=== PATIENT | female | born 1960 | race Caucasian/White ===

== ENCOUNTER 2018-05-18 00:24 | Inpatient (IN) | payer OTHER ==
[~2018-05-18] VITALS: Ht 149.9 cm; Wt 66.7 kg
[~2018-05-18 00:24] MED LIST: ATIVAN0.5 M1 PO; ATIVAN0.5 MG PO; BENTYL10 M1 PO; IBUPROFEN800 MG PO; LOSARTAN POTAS100 M1 PO; METOPROLOL SUC100 M2 PO; PERCOCET 325 MG1 TA2 PO; PRAVASTATIN40 MG PO; SYNTHROID0.175 MG PO; SYNTHROID137 MCG PO; ZOFRAN ODT4 M1 SL; ZOLOFT50 MG PO
--- NOTE | 2018-05-18 00:35 | ED GI/GU/ABDOMINAL COMPLAINT ---
History of Present Illness General Chief Complaint: Nausea, Vomiting, Diarrhea Stated Complaint: NVD Source: patient, old records Exam Limitations: clinical condition Vital Signs & Intake/Output Vital Signs & Intake/Output Vital Signs Date Time Temp Pulse Resp B/P B/P Pulse O2 O2 Flow FiO2 Mean Ox Delivery Rate 05/21 0857 152/90 05/21 0640 98.0 70 18 152/90 98 Room Air 05/20 2146 98.3 57 18 156/70 97 Room Air 05/20 1438 97.9 65 20 134/70 98 ED Intake and Output 05/21 0000 05/20 1200 Intake Total 550 Output Total Balance 550 Intake, Oral 550 Number 1 Bowel Movements Patient 147 lb Weight Weight Chair scale Measurement Method Allergies Coded Allergies: NO KNOWN ALLERGIES (02/01/15) Reconcile Medications Aspirin (Aspirin*) 81 MG TAB.CHEW 81 MG PO DAILY HEART HEALTH Atorvastatin Calcium 80 MG TABLET 80 MG PO 1700 CHOLESTEROL Fluoxetine HCl 20 MG CAPSULE 1 CAP PO DAILY DEPRESSION (Reported) Indapamide 1.25 MG TABLET 1 TAB PO DAILY HTN (Reported) Levothyroxine Sodium (Synthroid) 137 MCG TABLET 1 TAB PO DAILY HYPOTHYROIDISM (Reported) Levothyroxine Sodium (Synthroid) 150 MCG TABLET 0.15 MG PO DAILY AC HYPOTHYROID Lorazepam (Ativan) 0.5 MG TABLET 0.5 TAB PO TID PRN ANXIETY (Reported) Losartan Potassium 100 MG TABLET 1 TAB PO DAILY BP (Reported) Metoprolol Succinate 100 MG TAB.ER.24H 1 TAB PO DAILY HEART/BP (Reported) Triage Note: 57YO FEMALE TO TRIAGE W/CO N,V,D TONITE. STATES SHE ATE [employer] AT 1800. Triage Nurses Notes Reviewed? yes ? n Is pt currently ? No Onset: Abrupt Duration: hour(s):, changing over time, continues in ED, getting worse Quality/Severity: cramping, severe Location: generalized abdomen HPI: Patient presents for evaluation of nausea vomiting and diarrhea. Patient states that she ate [employer] fried chicken at about 6:00 in the evening and became ill shortly thereafter. Patient denies any recent travel or known ill contacts. Past History Travel History Traveled to [place] past 21 day No Medical History Any Pertinent Medical History? 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 No Review of Systems Review of Systems Constitutional: Reports: no symptoms. EENTM: Reports: no symptoms. Respiratory: Reports: no symptoms. Cardiovascular: Reports: no symptoms. GI: Reports: see HPI. Genitourinary: Reports: no symptoms. Musculoskeletal: Reports: no symptoms. Skin: Reports: no symptoms. Neurological/Psychological: Reports: no symptoms. Hematologic/Endocrine: Reports: no symptoms. Immunologic/Allergic: Reports: no symptoms. All Other Systems: Reviewed and Negative Physical Exam Physical Exam Gastrointestinal: SEE BELOW Comments: Gen.: Well-nourished, well-developed, no acute respiratory distress. Head: Normocephalic, atraumatic. Eyes: Normal inspection bilaterally Ears: Normal inspection bilaterally Nose: Normal inspection Throat/mouth : Moist mucosa Neck: Supple, full range of motion, no goiter Heart: Regular rate and rhythm, no murmurs rubs or gallops Lungs: Clear to auscultation bilaterally with normal air entry Chest: Nontender Back: Normal range of motion Abdomen: Soft, nontender, nondistended, hyperactive bowel sounds Extremities: Normal range of motion grossly, equal radial pulses, no cyanosis clubbing or edema Neurologic: Cranial nerves grossly intact, speech is clear Skin: warm and dry Psychiatric: Calm, cooperative, no apparent delusions or hallucinations Core Measures ACS in differential dx? No Sepsis Present: No Sepsis Focused Exam Completed? No Progress Differential Diagnosis: FOOD POISONING, VIRAL GASTROENTERITIS, BACTERIAL ENTERITIS/COLITIS, INFLAMMATORY BOWEL DISEASE, IRRITABLE BOWEL SYNDROME Plan of Care: Orders Procedure Date/time Status Nothing by Mouth 05/20 D Active Current Medications Sig/Neo Start time Last Medication Dose Stop Time Status Admin Levothyroxine Sodium 0.15 MG DAILY AC 05/21 07 AC 05/21 (Synthroid) 0543 Losartan Potassium 100 MG DAILY 05/20 0900 AC 05/21 (Cozaar) 0857 Atorvastatin Calcium 80 MG 1700 05/18 1700 AC 05/20 (Lipitor) 2114 Aspirin 81 MG DAILY 05/18 1643 AC 05/21 (Aspirin) 0857 Fluoxetine HCl 20 MG DAILY 05/18 0900 AC 05/21 (Prozac) 0857 Metoprolol Succinate 100 MG DAILY 05/18 0900 AC 05/19 (Toprol Xl) 0920 Lorazepam 0.5 MG BID PRN 05/18 0745 AC 05/18 (Ativan) 0801 Metoclopramide HCl 10 MG Q6P PRN 05/18 0745 AC 05/18 (Reglan) 0801 Heparin Sodium 5,000 UNIT Q8 05/18 0600 AC 05/20 (Porcine) 2114 Acetaminophen 1,000 MG Q6P PRN 05/18 0330 AC (Ofirmev) Lorazepam 0.25 MG TID PRN 05/18 0330 AC 05/20 (Ativan) 05/25 032 2220 Ondansetron HCl 4 MG Q6P PRN 05/18 0330 AC 05/18 (Zofran) 0708 Initial ED EKG: none Comments: 05/18/2018 1:48:45 AM I have updated [facility] on test results. Patient's case discussed with Dr. Huynh. Departure Departure Disposition: STILL A PATIENT Condition: Stable Clinical Impression Primary Impression: Gastroenteritis Secondary Impressions: Acute kidney injury, Hypokalemia, Hypomagnesemia, Hypophosphatemia Referrals: Vishal Alba MD (PCP/Family) Departure Forms: Customer Survey General Discharge Information Prescriptions: Current Visit Scripts Atorvastatin Calcium 80 MG PO 1700 #30 TAB Aspirin (Aspirin*) 81 MG PO DAILY #30 TAB Levothyroxine Sodium (Synthroid) 0.15 MG PO DAILY AC #30 TAB Admission Note Spoke With: Ernesto Solomon MD Documentation of Exam: Documentation of any treatments & extenuating circumstances including Concerns Regarding Discharge (functional status, medication knowledge or non-compliance, living conditions, etc.) that warrant an admission rather than observation: Patient presents with severe nausea vomiting and multiple episodes of diarrhea. She has evidence of acute kidney injury along with hypo-kalemia, hypophosphatemia, and hypomagnesemia. This places this patient at risk of worsening electrolyte abnormality, acidosis, EKG abnormalities/dysrhythmias, generalized weakness and worsening dehydration. Patient currently requires IV antiemetics and IV fluids given her acute kidney injury. Her potassium, magnesium and phosphorus should be repleted and serial determinations obtained to assess for improvement. Renal functions should also be monitored to assess for improvement with IV fluids. If the patient's electrolytes or renal functions do not improve then nephrology consultation should be considered. If the patient's vomiting and diarrhea do not improve then GI consultation should be considered. I do not feel she is a good candidate for outpatient management given her inability to tolerate P0. She would be unable to replete her electrolytes and could very well return in worse clinical condition. I feel she will require a multiple day hospitalization. Critical Care Note Critical Care Note Critical Care Time: 30-74 min
[2018-05-18 01:50] LABS: ABSOLUTE BASOPHIL COUNT 0 /CUMM (0.0-0.2); ABSOLUTE EOSINOPHIL COUNT 0.1 /CUMM (0.0-0.7); ABSOLUTE GRANULOCYTE CT 11.9 /CUMM (1.4-6.5); ABSOLUTE LYMPH COUNT 1.8 /CUMM (1.2-3.4); ABSOLUTE MONOCYTE COUNT 1.2 /CUMM (0.10-0.60); BASOPHIL % 0.3 % (0.0-2.0); EOSINOPHIL % 0.4 % (0-5); GRANULOCYTE % 79.4 % (42.2-75.2); HEMATOCRIT 37.4 % (37-47); MEAN CORPUSCULAR HGB 29.4 PG (27.0-31.0); MEAN CORPUSCULAR HGB CONC 34.3 G/DL (33.0-37.0); MEAN CORPUSCULAR VOLUME 85.8 FL (81.0-99.0); MEAN PLATELET VOLUME 8.7 FL (7.4-10.4); PLATELET COUNT 255 /CUMM (130-400); RBC DISTRIBUTION WIDTH 13.9 % (11.5-14.5); RED BLOOD CELL CT 4.36 /CUMM (4.20-5.40)
--- NOTE | 2018-05-18 02:23 | History & Physical ---
General Information and HPI Allergies/Medications Allergies: Coded Allergies: NO KNOWN ALLERGIES (02/01/15) Home Med list Dicyclomine Hydrochloride (Bentyl) 10 MG CAPSULE 2 CAP PO TID abd pain Dicyclomine Hydrochloride (Bentyl) 10 MG CAPSULE 1-2 CAP PO TID abd pain Levothyroxine Sodium (Synthroid) 150 MCG TABLET 1 TAB PO DAILY THYROID ( Reported) Lorazepam 0.5 MG TABLET 1 TAB PO DAILY ANXIETY (Reported) Losartan Potassium 100 MG TABLET 1 TAB PO DAILY BP (Reported) Metoprolol Succinate 100 MG TAB.ER.24H 1 TAB PO DAILY HEART/BP (Reported) Ondansetron (Zofran Odt) 4 MG TAB.RAPDIS 1 TAB SL TID nausea Ondansetron (Zofran Odt) 4 MG TAB.RAPDIS 1 TAB SL TID nausea Past History Travel History Traveled to [place] past 21 day No Medical History Cardiovascular: hypertension, hyperlipidemia Musculoskeletal: Paget's dis Psychiatric: anxiety, depression Endocrine: hypothyroidism 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
--- NOTE | 2018-05-18 02:42 | History & Physical ---
Carlos Cesar 05/18/18 0242: General Information and HPI MD Statement: I have seen and personally examined CHICA MILLER and documented this H&P. The patient is a 57 year old F who presented with a patient stated chief complaint of [nausea vomiting and diarrhea]. Source of Information: patient Exam Limitations: poor historian History of Present Illness: The patient is a 57-year-old woman with a past medical history significant for hypertension, hyperlipidemia, hypothyroidism, Paget's disease of left femor, who has come [facility] ER. The patient is a poor historian and is not comfortable in bed. She had dinner at around 6 this evening, which was [employer] chicken, after which she states that nausea, vomiting and diarrhea was started. She states that she has abdominal discomfort but believes that this is due to the nausea and vomiting. She believes that the Zofran has helped her with the nausea. She also mentions that she has chills but no fever or diaphoresis. She denies any chest pain, shortness of breath, headache, pain in lower extremities. She was noninformative and most of the information were collected from the PA student who seen the patient earlier. Past medical history: Hypertension, hyperlipidemia, left femoral Paget's disease , anxiety, depression, hypothyroidism, fibroid Past surgical history:leg surgery Family history:Her father had heart attack and her mother had a stroke: Social history: I could not obtain any information on her social history since she was not informative EKG: Previous EKG from 03/12/07 which was normal sinus rhythm normal axis normal intervals no ST segment change Today's EKG showed normal sinus rhythm, normal axis, heart rate 82, QTc: 449, ST depression of almost 1 mm in anterior leads V4-6 Imaging: CTA of abdomen is pending Allergies/Medications Allergies: Coded Allergies: NO KNOWN ALLERGIES (02/01/15) Home Med list Fluoxetine HCl 20 MG CAPSULE 1 CAP PO DAILY DEPRESSION (Reported) Indapamide 1.25 MG TABLET 1 TAB PO DAILY HTN (Reported) Levothyroxine Sodium (Synthroid) 137 MCG TABLET 1 TAB PO DAILY HYPOTHYROIDISM (Reported) Lorazepam (Ativan) 0.5 MG TABLET 0.5 TAB PO TID PRN ANXIETY (Reported) Losartan Potassium 100 MG TABLET 1 TAB PO DAILY BP (Reported) Metoprolol Succinate 100 MG TAB.ER.24H 1 TAB PO DAILY HEART/BP (Reported) Compliance With Home Meds: UNKNOWN Past History Travel History Traveled to [place] past 21 day No Medical History Cardiovascular: hypertension, hyperlipidemia Musculoskeletal: NONE (Left femoral Paget's disease), Paget's dis Psychiatric: anxiety, depression Endocrine: hypothyroidism FAMILY [employer] C[employer] PROVIDER/Reproductive: fibroid History of MRSA: No History of VRE: No History of CDIFF: No Surgical History Surgical History: N (leg surgery) Review of Systems Review of Systems Constitutional: Reports: see HPI. EENTM: Reports: see HPI. Cardiovascular: Reports: see HPI. Respiratory: Reports: see HPI. GI: Reports: see HPI. Genitourinary: Reports: see HPI. Musculoskeletal: Reports: see HPI. Skin: Reports: see HPI. Neurological/Psychological: Reports: see HPI. Hematologic/Endocrine: Reports: see HPI. Immunologic/Allergic: Reports: see HPI. Exam & Diagnostic Data Last 24 Hrs of Vital Signs/I&O Vital Signs Date Time Temp Pulse Resp B/P B/P Pulse O2 O2 Flow FiO2 Mean Ox Delivery Rate 05/18 0253 97.0 82 20 144/69 95 Room Air 05/18 0117 166/90 05/18 0104 Room Air 05/18 0029 97.4 94 22 94 Room Air Room Air Intake & Output 05/18 0800 05/18 0000 05/17 1600 Intake Total 1000 Output Total Balance 1000 Intake, IV 1000 Patient 138 lb Weight Physical Exam General Appearance Alert, Oriented X3, Moderate Distress Skin No Rashes, No Breakdown Skin Temp/Moisture Exam: Warm/Dry Sepsis Skin Exam (color): Normal for Ethnicity HEENT Atraumatic Neck Supple, No JVD Cardiovascular Regular Rate, Normal S1, Normal S2 Lungs Clear to Auscultation, Normal Air Movement Abdomen Normal Bowel Sounds (mild tenderness) Neurological Normal Speech, Strength at 5/5 X4 Ext Extremities No Clubbing, No Cyanosis, Normal Pulses Vascular Normal Pulses, Pulses Symmetrical Sepsis Peripheral Pulse Location: Dorsalis Pedis Sepsis Peripheral Pulse Exam: Normal Sepsis Cap Refill Exam: <2 Sec Assessment/Plan Assessment: The patient is a 57-year-old woman who has a past medical history significant for hypothyroidism, hypertension, hyperlipidemia, left femoral Paget disease and has come to the ER with chief complaint not nausea vomiting and diarrhea that is started from this evening after having [employer] chicken. She seems pretty uncomfortable on the bed turning around and has been using bathroom several times. Physical exam she did not have significant abdominal tenderness. Her lab shows that she has leukocytosis of 15, Hb 12.8, HCT 37.4, platelet 255. Sodium 143, potassium 2.9, chloride 103, bicarb 25, BUN 26, creatinine 1.1, lactic acid 5.1, troponin less than 0.01. Calcium 9.8, phosphorus decreased to 2.2, magnesium decreased to 1.4, lipase normal 111, LFT was within normal limits. She reports sudden onset nausea, vomiting and diarrhea that started after having food from outside. The most probable cause of her symptom is preformed toxins due to Staph areus or Bacillus Cereus. The most important diagnosis for her is mesenteric ischemia, although it is not consistent with the physical examination findings, but she will have a CTA abdomen and repeated lactic acid level to see how he trends. She has been taking indapamide for a couple of months, GI symptoms is 1 of the side effects of this medication but she has been taking it for a couple of months so it is less possible that her symptoms is are caused by that. She was hydrated with normal saline received IV potassium, IV magnesium, IV promethazine, IV ondansetron, and she will be admitted to telemetry floor for monitoring and serial checking of EKG and troponin levels because of the new findings in EKG. CT abdomen result is back which has not shown any mesenteric ischemia, also lactic acid is down to 3.1 which is not in favor of mesenteric ischemia diagnosis Problem list: 1. Nausea, vomiting, diarrhea, and abdominal pain-probable gastroenteritis 2. Lactic acid 5.1, in the setting could be due to mesenteric ischemia which is less likely ---> ruled out 3. Hypokalemia/hypomagnesemia: Due to fluid loss from vomiting and diarrhea 4. Hypophosphatemia possibly due to left femoral Paget's disease 5. Hypertension 6. Hyperlipidemia 7. Anxiety/depression 8. Hypothyroidism As Ranked By This Provider Problem List: 1. Vomiting and diarrhea 2. Hypokalemia 3. Gastroenteritis 4. Hypomagnesemia 5. Hypophosphatemia Core Measures/Misc (07/07) Acute Coronary Syndrome ACS Diagnosis: No Congestive Heart Failure Congestive Heart Failure Diagnosis No Cerebrovascular Accident CVA/TIA Diagnosis: No VTE (View Protocol) VTE Risk Factors Age>40 No Mechanical VTE Prophylaxis d/t N/A MechProphylax Ordered No VTE Pharm Prophylaxis d/t NA PharmProphylax ordered Sepsis (View protocol) Sepsis Present: No If YES complete Sepsis Event Note If YES complete Sepsis Event Note Galen CHOIDann 05/18/18 0303: Core Measures/Misc (07/07) Sepsis (View protocol) If YES complete Sepsis Event Note If YES complete Sepsis Event Note Resident Review Statement Resident Statement: examined this patient, discussed with brand marketing intern, agreed with brand marketing intern, reviewed EMR data (avail) Other Findings: History of Present Illness 57 year old woman with past medical history of hypertension, hyperlipidemia, pagets disease, anxiety, depression, and hypothyroidism seen for nausea, vomiting, diarrhea, and abdominal pain. Patient reports being in her normal state of health until just after dinner today. Around 6 PM she got [employer] for dinner and shortly thereafter developed her symptoms. She is markedly nauseated with non-bloody bilious vomiting and frequent brown, non-bloody water stools associated with abdominal pain. Due to persistence / worsening of her symptoms she came to the [facility] ED. Presently she is complaining of severe nausea and frequent stools with new chills and denies abdominal pain at rest. Review of Systems Limited due to patient distress, but she denies any fever, chest pain, shortness of breath, or urinary symptoms. Objective Vitals: Temp 97.4, HR 94, RR 22, BP 166/90, O2 94% on RA Physical Exam -General: middled aged woman in moderate distress -HEENT: NCAT, PERRL, EOMI, anicteric sclera, dry oral mucosa -Neck: Supple, no JVD, trachea midline, no accessory respiratory muscle use -Cardio: Normal S1/S2 w/o m/g/r; RRR -Pulm: CTA bilaterally -Abdomen: Soft, moderate RUQ tenderness, non-distended, bowel sounds intact -Neuro: Awake and alert, CN II-XII grossly intact Labs / Imaging / Studies -CBC: WBC 15.0, HGB 12.8, HCT 37.4, PLT 255 -BMP: Na 143, K 2.9, Cl 103, CO2 25, BUN 26, Cr 1.1, AG 16, Glu 177 -LFT: within normal limits -Misc: Ca 9.8, PO 2.2, Mg 1.4, Lipase negative, lactic 5.1, troponin I <0.01 -EKG: NSR with ST depression V4-V6 Assessment 57 year old woman with multiple medical problems significant for hypertension and hyperlipidemia and multiple first degree family members with cardiovascular disease seen for acute onset nausea, vomiting, diarrhea, and abdominal pain after eating fried chicken. Presently patient is complaining of severe nausea and frequent stools but denies any abdominal pain at rest. Vitals are significant for BP 166/90 and are otherwise normal. Physical examination demonstrates a woman in moderate distress appearing restless / colicky with a normal cardiopulmonary examination and RUQ abdominal tenderness. Significant labs include WBC 15.0, K 2.9, Cr 1.1 (0.6 baseline), Mg 1.4, PO 2.2, Lactic 5.1, Troponin I negative. EKG demonstrated new ST depression in V4-V6. In the ED patient received 1 L normal saline, phenergan, zofran, KCl, and magnesium. Clinically patient appears to have suffered a gastroenteritis / colitis secondary to ingestion of fast food that possible contained preformed toxin resulting in her symptoms. The leukocytosis and metabolic derrangements are likely due to dehydration and fluid losses from vomiting and diarrhea. The new EKG changes are likely due to underlying non-obstructive coronary artery disease secondary to the physiologic stress from the items listed above. Her lactic acid is markedly elevated which is concerning for mesenteric ischemi; however she has no abdominal pain at rest and does not have bloody stools. She is being admitted to the telemetry floor for telemetry monitoring, serial troponin/EKG, electrolyte monitoring/repletion, antiemetrics, CTA imaging of her abdomen, and intravenous fluids. Problem List -Abdominal pain, nausea, vomiting, diarrhea - gastroenteritis vs colitis -Leukocytosis, likely reactive -Hypokalemia / Hypomagnesenemia - likely due to vomiting, diarrhea, dehydration -Hypophosphatemia with history of Pagets -Acute kidney injury, likely prerenal azotemia (baseline 0.6, now 1.1) -Hypertension -Hyperlipidemia -Anxiety / Depression -Hypothyroidism Plan -Admit to telemetry floor -Telemetry monitoring -Normal Saline @ 125 mL/hr -Zofran PRN for nausea -Hold indapamide, losartan for dehydration / ALEC -Stat CTA abdomen/pelvis to assess for mesenteric ischemia -Stool culture, ova, parasites -C. diff toxin -Trend lactic acid until normal -Trend troponin / EKG until peak or three negative sets -Pain control with acetaminophen -NPO, advance diet as tolerated -DVT PPx with subcutaneous heparin -FULL CODE Ernesto Solomon MD 05/18/18 0503: General Information and HPI MD Statement: I have seen and personally examined CHICA MILLER and documented this H&P. The patient is a 57 year old F who presented with a patient stated chief complaint of [nausea vomiting and diarrhea]. Source of Information: patient Exam Limitations: clinical condition Past History Medical History Cardiovascular: hypertension, hyperlipidemia Musculoskeletal: Paget's Disease Psychiatric: anxiety, depression Endocrine: hypothyroidism Review of Systems Review of Systems Constitutional: Reports: see HPI. Exam & Diagnostic Data Last 24 Hrs of Vital Signs/I&O Vital Signs Date Time Temp Pulse Resp B/P B/P Pulse O2 O2 Flow FiO2 Mean Ox Delivery Rate 05/18 0253 97.0 82 20 144/69 95 Room Air 05/18 0117 166/90 05/18 0104 Room Air 05/18 0029 97.4 94 22 94 Room Air Room Air Intake & Output 05/18 0800 05/18 0000 05/17 1600 Intake Total 1000 Output Total Balance 1000 Intake, IV 1000 Patient 138 lb Weight Physical Exam General Appearance Alert, Oriented X3, Moderate Distress Skin No Rashes, No Breakdown Skin Temp/Moisture Exam: Warm/Dry Sepsis Skin Exam (color): Normal for Ethnicity HEENT Atraumatic, PERRLA, EOMI Neck Supple, No JVD Lymphatic Axillary nl, Cervical nl Cardiovascular Regular Rate, Normal S1, Normal S2 Lungs Clear to Auscultation, Normal Air Movement Abdomen Normal Bowel Sounds, Soft Neurological Normal Gait, Normal Speech Extremities No Clubbing, No Cyanosis Vascular Normal Pulses, Pulses Symmetrical Sepsis Peripheral Pulse Location: Dorsalis Pedis Sepsis Peripheral Pulse Exam: Normal Sepsis Cap Refill Exam: <2 Sec Last 24 Hrs of Labs/[place]ay: Laboratory Tests 05/18/18 0356: Lactic Acid 3.1 H 05/18/18 0103: Anion Gap 15, Estimated GFR 51 L, BUN/Creatinine Ratio 23.6, Glucose 177 H, Lactic Acid 5.1 H, Calcium 9.8, Phosphorus 2.2 L, Magnesium 1.4 L, Total Bilirubin 0.6, AST 27, ALT 27, Alkaline Phosphatase 80, Troponin I < 0.01, Total Protein 6.8, Albumin 4.2, Globulin 2.6, Albumin/Globulin Ratio 1.6, Lipase 111, CBC w Diff NO MAN DIFF REQ, RBC 4.36, MCV 85.8, MCH 29.4, MCHC 34.3, RDW 13.9, MPV 8.7, Gran % 79.4 H, Lymphocytes % 12.0 L, Monocytes % 7.9, Eosinophils % 0.4, Basophils % 0.3, Absolute Granulocytes 11.9 H, Absolute Lymphocytes 1.8, Absolute Monocytes 1.2 H, Absolute Eosinophils 0.1, Absolute Basophils 0 Microbiology 05/18 327 STOOL: Cryptosporidium Antigen - ORD 05/18 327 STOOL: Giardia Antigen (NILAY) - ORD 05/18 327 STOOL: Clostridium difficile Toxin A & B - ORD 05/18 0044 STOOL: Stool Culture - ORD Diagnostic Data EKG Results NSR with ST depression V4-V6. Core Measures/Misc (07/07) Sepsis (View protocol) If YES complete Sepsis Event Note If YES complete Sepsis Event Note Attending MD Review Statement Attending Statement Attending MD Statement: examined this patient, discuss w/resident/PA/NEEDLE LOOM WEAVER, agreed w/resident/PA/NEEDLE LOOM WEAVER, amended to note Attending Assessment/Plan: This patient is a 57 year old female with a significant past medical history for hypertension, hyperlipidemia, Pagets disease, anxiety, depression, and hypothyroidism seen for nausea, vomiting, diarrhea, and abdominal pain. She was in her normal state of health until just after dinner on the day of admission. Around 6 PM she ate [facility] for dinner and shortly thereafter developed nauseated with non-bloody bilious vomiting and frequent brown, non-bloody water stools associated with abdominal pain. Due to persistence / worsening of her symptoms she came to the [facility] ED. Afebrile, VSS, moderate RUQ tenderness, WBC 15.0, lactic acid 5.1, troponin I <0.01, EKG: NSR with ST depression V4-V6. Multiple first degree family members with cardiovascular disease. Gastroenteritis / colitis secondary to ingestion of fast food that possible contained preformed toxin resulting in her symptoms. The leukocytosis and metabolic derangements are likely due to dehydration and fluid losses from vomiting and diarrhea. The new EKG changes are likely due to unlikely non- obstructive coronary artery disease secondary to the physiologic stress. She is being admitted to the telemetry floor for telemetry monitoring, serial troponin/ EKG, electrolyte monitoring/repletion, antiemetic, CTA imaging of her abdomen, and intravenous fluids.
[2018-05-18] MEDS ORDERED: INDAPAMIDE1.25 M1 PO (03:29)
[2018-05-18] MEDS ORDERED: FLUOXETINE HCL20 M2 PO (03:29)
--- NOTE | 2018-05-18 05:20 | CT SCAN REPORT ---
EXAMINATION: CT ANGIOGRAM ABDOMEN AND PELVIS CLINICAL INFORMATION: Abdominal pain. Concern for mesenteric ischemia. COMPARISON: July 20, 2017. TECHNIQUE: Multiple axial images were obtained through the abdomen and pelvis following the administration of 95 mL of Optiray 320 intravenous contrast. Multiplanar reconstructions were performed. DLP: 695 mGy-cm FINDINGS: The visualized lung bases are clear. The visualized portions of the heart are unremarkable. The liver is of normal size and attenuation without focal lesions nor intrahepatic biliary ductal dilation. A normal gallbladder is identified. There is no wall thickening or discernible pericholecystic fluid. The spleen, pancreas, adrenal glands are unremarkable. Both kidneys are of normal size and attenuation without hydronephrosis or nephrolithiasis. Following the administration of IV contrast, prompt symmetric nephrograms are displayed. There are stable calcified plaques within the abdominal aorta and iliac arteries. No dissection is demonstrable. There are patent ostia to the SMA, MAUREEN and celiac axis. There are no abnormal calcifications along the origins of the renal arteries. There is no abdominal free fluid. There is neither mesenteric nor retroperitoneal lymphadenopathy. There are scattered mesenteric lymph nodes again identified. There is stable mild upper abdominal mesenteric fat stranding inferior to the pancreas. Normal unopacified loops of small and large bowel are identified. There is no pelvic free fluid. The urinary bladder is unremarkable. There is neither pelvic nor inguinal lymphadenopathy. Bone windows: Neither sclerotic nor lytic bone lesions are identified. Again identified is increased trabecular sclerosis within the visualized proximal left femur. There are bilateral L5 pars defects. There is mild anterior displacement of L5 in relation to S1. IMPRESSION: No evidence for acute abdominal or pelvic inflammatory or infectious processes. No acute vascular abnormalities demonstrable. Stable scattered nonpathologically enlarged mesenteric lymph nodes with mild mesenteric fat stranding likely indicative of panniculitis. Manifestations of patches disease within the left femur. Following creation of 3-D reconstructions, the examination will be reviewed by a member of the Interventional Radiology staff and an addendum issued.
[2018-05-18 08:51] LABS: ABSOLUTE BASOPHIL COUNT 0 /CUMM (0.0-0.2); ABSOLUTE EOSINOPHIL COUNT 0 /CUMM (0.0-0.7); ABSOLUTE GRANULOCYTE CT 10.5 /CUMM (1.4-6.5); ABSOLUTE LYMPH COUNT 0.7 /CUMM (1.2-3.4); ABSOLUTE MONOCYTE COUNT 0.5 /CUMM (0.10-0.60); BASOPHIL % 0.2 % (0.0-2.0); EOSINOPHIL % 0 % (0-5); HEMATOCRIT 37.1 % (37-47); MEAN CORPUSCULAR HGB 29.8 PG (27.0-31.0); MEAN CORPUSCULAR HGB CONC 34.3 G/DL (33.0-37.0); MEAN CORPUSCULAR VOLUME 86.8 FL (81.0-99.0); MEAN PLATELET VOLUME 9.2 FL (7.4-10.4); PLATELET COUNT 196 /CUMM (130-400); RBC DISTRIBUTION WIDTH 14.1 % (11.5-14.5); RED BLOOD CELL CT 4.28 /CUMM (4.20-5.40); WHITE BLOOD CELL COUNT 11.7 /CUMM (4.8-10.8)
[2018-05-18 10:02] LABS: GRANULOCYTE % 89.6 % (42.2-75.2)
--- NOTE | 2018-05-18 16:10 | PN- Att Addend ---
Attending Addendum Attending Brief Note Ms. Alonzo was seen and evaluated in ER. Briefly, she is a plesant 57 year old female with a significant past medical history for hypertension, hyperlipidemia, Pagets disease, anxiety, depression, and hypothyroidism seen for nausea, vomiting, diarrhea, and abdominal pain. She was in her normal state of health until just after dinner on the day of admission. Around 6 PM she ate [facility] for dinner and shortly thereafter developed nauseated with non-bloody bilious vomiting and frequent brown, non-bloody water stools associated with abdominal pain. Due to persistence / worsening of her symptoms she came to the [place] ED. Afebrile, VSS, moderate RUQ tenderness, WBC 15.0, lactic acid 5.1, First set troponin I <0.01, EKG: NSR with ST depression V4-V6 VSS GEN: NAD LUNGS: CTAB HEART: s1s2 Labs/Diagnostics: reviewed A/P: --BP optimally controlled --second set of Trop found to be positive, ST dep- -- will consult CARDS for NSTEMI
[2018-05-18 23:00] VITALS: BP 129/65
--- NOTE | 2018-05-19 08:17 | PN- Housestaff ---
Gerson CHOI,Jaqueline 05/19/18 0817: Subjective Follow-up For: Nausea vomiting diarrhea Troponin rise Subjective: Patient seen and examined. She denies having any further nausea or vomiting but her last episode of diarrhea was this morning. Patient denies any chest pain or shortness of breath. Her vital signs this morning are stable. Review of Systems Constitutional: Reports: no symptoms. Cardiovascular: Reports: no symptoms. Respiratory: Reports: no symptoms. Gastrointestinal: Reports: diarrhea. Musculoskeletal: Reports: no symptoms. Objective Last 24 Hrs of Vital Signs/I&O Vital Signs Date Time Temp Pulse Resp B/P B/P Pulse O2 O2 Flow FiO2 Mean Ox Delivery Rate 05/19 0920 60 132/70 05/19 0755 98.7 05/19 0604 69 18 132/65 100 Room Air 05/18 2300 98.3 80 16 129/65 97 Room Air 05/18 2005 98.3 80 16 129/65 97 Room Air 05/18 1740 98.5 68 18 138/65 97 Room Air Intake & Output 05/19 1600 05/19 0800 05/19 0000 Intake Total 880 1000 Output Total Balance 880 1000 Intake, IV 400 1000 Intake, Oral 480 Physical Exam General Appearance: Alert, Oriented X3, Cooperative, No Acute Distress Skin: No Rashes, No Breakdown, No Significant Lesion Skin Temp/Moisture Exam: Warm/Dry HEENT: Atraumatic, PERRLA, EOMI, Mucous Membr. moist/pink Cardiovascular: Regular Rate, Normal S1, Normal S2, No Murmurs Lungs: Clear to Auscultation, Normal Air Movement Abdomen: Normal Bowel Sounds, Soft, No Tenderness Neurological: Normal Speech Current Medications: Current Medications Sig/Neo Start time Last Medication Dose Route Stop Time Status Admin Acetaminophen 1,000 MG Q6P PRN 05/18 0330 AC IV Aspirin 0 .STK-MED ONE 05/18 1649 DC PO Aspirin 81 MG DAILY 05/18 1643 AC 05/19 PO 0920 Atorvastatin Calcium 80 MG 1700 05/18 1700 AC 05/18 PO 1737 Fluoxetine HCl 20 MG DAILY 05/18 0900 AC 05/19 PO 0920 Heparin Sodium 0 .STK-MED ONE 05/19 0620 DC (Porcine) .ROUTE Heparin Sodium 0 .STK-MED ONE 05/18 2236 DC (Porcine) .ROUTE Heparin Sodium 5,000 UNIT Q8 05/18 0600 AC 05/19 (Porcine) SC 1414 Levothyroxine Sodium 0.137 MG DAILY AC 05/18 0700 AC 05/19 PO 0628 Lorazepam 0.5 MG BID PRN 05/18 0745 AC 05/18 IV 0801 Lorazepam 0.25 MG TID PRN 05/18 0330 AC PO 05/25 0329 Metoclopramide HCl 10 MG Q6P PRN 05/18 0745 AC 05/18 IV 0801 Metoprolol Succinate 100 MG DAILY 05/18 0900 AC 05/19 PO 0920 Ondansetron HCl 4 MG Q6P PRN 05/18 0330 AC 05/18 IV 0708 Sodium Chloride 1,000 ML .Q8H 05/18 0330 DC 05/18 IV 05/18 1936 1401 Last 24 Hrs of Lab/Nilay Results Last 24 Hrs of Labs/Mics: Laboratory Tests 05/18/18 2020: Troponin I 0.13 *H Microbiology 05/19 1530 GI: Stool Culture - RECD 05/19 1530 STOOL: Clostridium difficile Toxin A & B - RECD 05/19 1530 STOOL: Cryptosporidium Antigen - ORD 05/19 1530 STOOL: Giardia Antigen (NILAY) - ORD 05/19 1339 GI FROM OR: Clostridium difficile Toxin A & B - CAN Cancelled: ORDER ERROR 05/19 1339 GI FROM OR: Stool Culture - CAN Cancelled: ORDER ERROR Assessment/Plan Assessment: 57 year old woman with past medical history of hypertension, hyperlipidemia, pagets disease, anxiety, depression, and hypothyroidism seen for nausea, vomiting, diarrhea, and abdominal pain. Patient reports being in her normal state of health until just after dinner today. Around 6 PM she got [facility] for dinner and shortly thereafter developed her symptoms. She is markedly nauseated with non-bloody bilious vomiting and frequent brown, non-bloody water stools associated with abdominal pain. Due to persistence / worsening of her symptoms she came to the [facility] ED. Presently she is complaining of severe nausea and frequent stools with new chills and denies abdominal pain at rest. Review of Systems Limited due to patient distress, but she denies any fever, chest pain, shortness of breath, or urinary symptoms. Objective Vitals: Temp 97.4, HR 94, RR 22, BP 166/90, O2 94% on RA Physical Exam -General: middled aged woman in moderate distress -HEENT: NCAT, PERRL, EOMI, anicteric sclera, dry oral mucosa -Neck: Supple, no JVD, trachea midline, no accessory respiratory muscle use -Cardio: Normal S1/S2 w/o m/g/r; RRR -Pulm: CTA bilaterally -Abdomen: Soft, moderate RUQ tenderness, non-distended, bowel sounds intact -Neuro: Awake and alert, CN II-XII grossly intact Labs / Imaging / Studies -CBC: WBC 15.0, HGB 12.8, HCT 37.4, PLT 255 -BMP: Na 143, K 2.9, Cl 103, CO2 25, BUN 26, Cr 1.1, AG 16, Glu 177 -LFT: within normal limits -Misc: Ca 9.8, PO 2.2, Mg 1.4, Lipase negative, lactic 5.1, troponin I <0.01 -EKG: NSR with ST depression V4-V6 Assessment 57 year old woman with multiple medical problems significant for hypertension and hyperlipidemia and multiple first degree family members with cardiovascular disease seen for acute onset nausea, vomiting, diarrhea, and abdominal pain after eating fried chicken. Presently patient is complaining of severe nausea and frequent stools but denies any abdominal pain at rest. Vitals are significant for BP 166/90 and are otherwise normal. Physical examination demonstrates a woman in moderate distress appearing restless / colicky with a normal cardiopulmonary examination and RUQ abdominal tenderness. Significant labs include WBC 15.0, K 2.9, Cr 1.1 (0.6 baseline), Mg 1.4, PO 2.2, Lactic 5.1, Troponin I negative. EKG demonstrated new ST depression in V4-V6. In the ED patient received 1 L normal saline, phenergan, zofran, KCl, and magnesium. Clinically patient appears to have suffered a gastroenteritis / colitis secondary to ingestion of fast food that possible contained preformed toxin resulting in her symptoms. The leukocytosis and metabolic derrangements are likely due to dehydration and fluid losses from vomiting and diarrhea. The new EKG changes are likely due to underlying non-obstructive coronary artery disease secondary to the physiologic stress from the items listed above. Her lactic acid is markedly elevated which is concerning for mesenteric ischemi; however she has no abdominal pain at rest and does not have bloody stools. She is being admitted to the telemetry floor for telemetry monitoring, serial troponin/EKG, electrolyte monitoring/repletion, antiemetrics, CTA imaging of her abdomen, and intravenous fluids. Problem List -Abdominal pain, nausea, vomiting, diarrhea - gastroenteritis vs colitis -Leukocytosis, likely reactive -Hypokalemia / Hypomagnesenemia - likely due to vomiting, diarrhea, dehydration -Hypophosphatemia with history of Pagets -Acute kidney injury, likely prerenal azotemia (baseline 0.6, now 1.1) -Hypertension -Hyperlipidemia -Anxiety / Depression -Hypothyroidism Plan -Admit to telemetry floor -Telemetry monitoring -Normal Saline @ 125 mL/hr -Zofran PRN for nausea -Hold indapamide, losartan for dehydration / ALEC -Stat CTA abdomen/pelvis to assess for mesenteric ischemia -Stool culture, ova, parasites -C. diff toxin -Trend lactic acid until normal -Trend troponin / EKG until peak or three negative sets -Pain control with acetaminophen -NPO, advance diet as tolerated -DVT PPx with subcutaneous heparin -FULL CODE Problem List: 1. Hypophosphatemia 2. Hypomagnesemia 3. Vomiting and diarrhea Pain Ratin Pain Location: NA Pain Goal: Remain pain free Pain Plan: NA Tomorrow's Labs & Rationales: Megan Crabtree MD 05/19/18 1251: Attending MD Review Statement Attending Statement Attending MD Statement: examined this patient, discuss w/resident/PA/RHEOLOGIST, agreed w/resident/PA/RHEOLOGIST, reviewed EMR data (avail), discussed with nursing, discussed with case mgmt, reviewed images Attending Assessment/Plan: 57-year-old female past medical history of hypertension and hyperlipidemia who is here with nausea vomiting diarrhea, hypokalemia, profound lactic acidosis of 5 on admission that's come down to 1.7. She was agitated and restless and in the setting of his dehydration and electrolyte abnormalities has had a troponin increase. Seen by cardiology who thinks this is probably type II [place]/demand ischemia. We'll get an echocardiogram. Her thyroid functions a hard to interpret as she takes levothyroxine and her dose was recently changed. Her TSH is elevated but suggests hypothyroidism but her free T4 is high. Will follow-up as per endocrine and cardiology.
--- NOTE | 2018-05-19 11:45 | Cons- Cardiology ---
General Information and HPI Consulting Request Date of Consult: 05/19/18 Requested By: Ernesto Solomon MD History of Present Illness: Ms. Alonzo is a 57 year old female with history of hypertension and dyslipidemia. She initially presented to the ER for severe watery diarrhea accompanied by vomiting. At baseline, this patient is mildly active and can walk briskly without symptoms. She denies having any chest pain, pressure, tightness , heartburn, shortness of breath, lightheadedness or palpitations. In the ER the patient was discovered to have mildly elevated cardiac enzymes. Her nausea has resolved but she continues to complain of diarrhea. Allergies/Medications Allergies: Coded Allergies: NO KNOWN ALLERGIES (02/01/15) Home Med List: Fluoxetine HCl 20 MG CAPSULE 1 CAP PO DAILY DEPRESSION (Reported) Indapamide 1.25 MG TABLET 1 TAB PO DAILY HTN (Reported) Levothyroxine Sodium (Synthroid) 137 MCG TABLET 1 TAB PO DAILY HYPOTHYROIDISM (Reported) Lorazepam (Ativan) 0.5 MG TABLET 0.5 TAB PO TID PRN ANXIETY (Reported) Losartan Potassium 100 MG TABLET 1 TAB PO DAILY BP (Reported) Metoprolol Succinate 100 MG TAB.ER.24H 1 TAB PO DAILY HEART/BP (Reported) Review of Systems Review of Systems: A review of systems is remarkable for chills. 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 MOTHER (Cerebral hemorrhage in her 80's.). Psychosocial History Smoking Status: Former Smoker ETOH Use: occasional use Exam & Diagnostic Data Vital Signs and I&O Vital Signs Date Time Temp Pulse Resp B/P B/P Pulse O2 O2 Flow FiO2 Mean Ox Delivery Rate 05/19 0920 60 132/70 05/19 0755 98.7 05/19 0604 69 18 132/65 100 Room Air 05/18 2300 98.3 80 16 129/65 97 Room Air 05/18 2005 98.3 80 16 129/65 97 Room Air 05/18 1740 98.5 68 18 138/65 97 Room Air 05/18 1531 98.2 76 16 116/60 96 Room Air 05/18 1334 98.4 84 105/78 Intake & Output 05/19 1600 05/19 0805/19 0000 05/18 1600 05/18 0805/18 0000 Intake Total 1000 1350 1000 Output Total 200 Balance 1000 1150 1000 Intake, IV 1000 1350 1000 Output, Urine 200 Patient 138 lb 138 lb Weight Weight Reported by Patient Measurement Method Physical Exam: General: WD/WN female in NAD; alert and oriented x 3 HEENT: NC/AT, PERRL, EOMI Neck: no JVD, no carotid bruit Heart: RRR w/o murmur Lungs: clear bilaterally ABdomen: soft, NT, +ve bowel sounds Extremities: no edema Assessment/Plan Assessment/Plan * This patient has a very mild rise in cardiac enzymes that is likely related to increase myocardial demand in the setting of tachycardia from both hyperthyroidism and dehydration. Her cardiac enzymes are coming down but I do think they are airport representative of some degree of myocardial ischemia. We will risk stratify this patient be a treadmill nuclear stress test. * Obtain an echocardiogram. * Begin an aspirin and statin. Continue her beta jason. Consult Acknowledgment - Thank you for your consult request.
--- NOTE | 2018-05-19 18:42 | Cons- Endocrinology ---
General Information and HPI Consulting Request Date of Consult: 05/19/18 Requested By: medical team Reason for Consult: evaluation and management of hypothyroidism Source of Information: patient, old records Exam Limitations: no limitations History of Present Illness: A 57-year-old woman with a past medical history significant for hypertension, hyperlipidemia, hypothyroidism, Paget's disease, who presented to [facility] ER for nausea, vomiting and diarrhea after she had [employer]. She was found to have positive troponin with peak troponin of 0.24 She has had hypothyroidism and has been on levothyroxine 150 mcg daily for years. However, her PMD just lowered her Levothyroxine from 150 mcg daily to 137 mcg daily several weeks ago. In ER, blood work showed TSH 7.1 and TT4 12.6. Allergies/Medications Allergies: Coded Allergies: NO KNOWN ALLERGIES (02/01/15) Home Med List: Fluoxetine HCl 20 MG CAPSULE 1 CAP PO DAILY DEPRESSION (Reported) Indapamide 1.25 MG TABLET 1 TAB PO DAILY HTN (Reported) Levothyroxine Sodium (Synthroid) 137 MCG TABLET 1 TAB PO DAILY HYPOTHYROIDISM (Reported) Lorazepam (Ativan) 0.5 MG TABLET 0.5 TAB PO TID PRN ANXIETY (Reported) Losartan Potassium 100 MG TABLET 1 TAB PO DAILY BP (Reported) Metoprolol Succinate 100 MG TAB.ER.24H 1 TAB PO DAILY HEART/BP (Reported) Review of Systems Review of Systems Constitutional: Reports: see HPI. Cardiovascular: Denies: chest pain. Respiratory: Denies: short of breath. GI: Reports: diarrhea, nausea, vomiting. Musculoskeletal: Denies: back pain. Hematologic/Endocrine: Reports: see HPI. Past History Travel History Traveled to [place] past 21 day No Medical History Blood Transfusion Hx: No Cardiovascular: hypertension, hyperlipidemia Musculoskeletal: Paget's Disease Psychiatric: anxiety, depression Endocrine: hypothyroidism [employer]CR[employer]/Reproductive: fibroid Surgical History Surgical History: hysterectomy (with bilateral oophorectomy), bilateral breast reduction brittney placement in right lower extremity Family History Relations & Conditions If Any: FATHER ( of an [place] in his 40's.). MOTHER (Cerebral hemorrhage in her 80's.). Psychosocial History Smoking Status: Former Smoker ETOH Use: occasional use Exam & Diagnostic Data Last 24 Hrs of Vital Signs/I&O Vital Signs Date Time Temp Pulse Resp B/P B/P Pulse O2 O2 Flow FiO2 Mean Ox Delivery Rate 05/19 1817 98.3 61 16 166/86 99 Room Air 05/19 1628 98.2 56 17 158/72 97 Room Air 05/19 0920 60 132/70 05/19 0755 98.7 05/19 0604 69 18 132/65 100 Room Air 05/18 2300 98.3 80 16 129/65 97 Room Air 05/18 2005 98.3 80 16 129/65 97 Room Air Intake & Output 05/19 1600 05/19 0800 05/19 0000 Intake Total 880 1000 Output Total Balance 880 1000 Intake, IV 400 1000 Intake, Oral 480 Physical Exam General Appearance: no apparent distress Neck: normal inspection Respiratory: lungs clear Cardiovascular: regular rate/rhythm Gastrointestinal: soft, non-tender Extremities: no edema Labs/Nilay Results: Laboratory Tests 05/18 1313 1000 Chemistry Sodium (137 - 145 mmol/L) 142 Potassium (3.5 - 5.1 mmol/L) 4.0 Chloride (98 - 107 mmol/L) 106 Carbon Dioxide (22 - 30 mmol/L) 24 Anion Gap (5 - 16) 12 BUN (7 - 17 mg/dL) 22 H Creatinine (0.5 - 1.0 mg/dL) 0.9 Estimated GFR (>60 ml/min) > 60 BUN/Creatinine Ratio (7 - 25 %) 24.4 Lactic Acid (0.7 - 2.1 mmol/L) 1.7 Cancelled Troponin I (< 0.11 ng/ml) 0.13 *H 0.24 *H 05/18 05/18 0700 0356 Chemistry Sodium (137 - 145 mmol/L) 143 Potassium (3.5 - 5.1 mmol/L) 3.6 Chloride (98 - 107 mmol/L) 103 Carbon Dioxide (22 - 30 mmol/L) 26 Anion Gap (5 - 16) 14 BUN (7 - 17 mg/dL) 26 H Creatinine (0.5 - 1.0 mg/dL) 1.0 Estimated GFR (>60 ml/min) 57 L BUN/Creatinine Ratio (7 - 25 %) 26.0 H Lactic Acid (0.7 - 2.1 mmol/L) 3.4 H 3.1 H Phosphorus (2.5 - 4.5 mg/dL) 4.2 Magnesium (1.6 - 2.3 mg/dL) 1.9 Troponin I (< 0.11 ng/ml) 0.06 TSH (0.270 - 4.200 uIU/mL) 7.100 H Thyroxine (T4) (4.5 - 10.9 ug/dL) 12.6 H Hematology CBC w Diff NO MAN DIFF REQ WBC (4.8 - 10.8 /CUMM) 11.7 H RBC (4.20 - 5.40 /CUMM) 4.28 Hgb (12.0 - 16.0 G/DL) 12.7 Hct (37 - 47 %) 37.1 MCV (81.0 - 99.0 FL) 86.8 MCH (27.0 - 31.0 PG) 29.8 MCHC (33.0 - 37.0 G/DL) 34.3 RDW (11.5 - 14.5 %) 14.1 Plt Count (130 - 400 /CUMM) 196 MPV (7.4 - 10.4 FL) 9.2 Gran % (42.2 - 75.2 %) 89.6 H Lymphocytes % (20.5 - 51.1 %) 6.2 L Monocytes % (1.7 - 9.3 %) 4.0 Eosinophils % (0 - 5 %) 0 Basophils % (0.0 - 2.0 %) 0.2 Absolute Granulocytes (1.4 - 6.5 /CUMM) 10.5 H Absolute Lymphocytes (1.2 - 3.4 /CUMM) 0.7 L Absolute Monocytes (0.10 - 0.60 /CUMM) 0.5 Absolute Eosinophils (0.0 - 0.7 /CUMM) 0 Absolute Basophils (0.0 - 0.2 /CUMM) 0 05/18 0103 Chemistry Sodium (137 - 145 mmol/L) 143 Potassium (3.5 - 5.1 mmol/L) 2.9 *L Chloride (98 - 107 mmol/L) 103 Carbon Dioxide (22 - 30 mmol/L) 25 Anion Gap (5 - 16) 15 BUN (7 - 17 mg/dL) 26 H Creatinine (0.5 - 1.0 mg/dL) 1.1 H Estimated GFR (>60 ml/min) 51 L BUN/Creatinine Ratio (7 - 25 %) 23.6 Glucose (65 - 99 mg/dL) 177 H Lactic Acid (0.7 - 2.1 mmol/L) 5.1 H Calcium (8.4 - 10.2 mg/dL) 9.8 Phosphorus (2.5 - 4.5 mg/dL) 2.2 L Magnesium (1.6 - 2.3 mg/dL) 1.4 L Total Bilirubin (0.2 - 1.3 mg/dL) 0.6 AST (14 - 36 U/L) 27 ALT (9 - 52 U/L) 27 Alkaline Phosphatase (<127 U/L) 80 Troponin I (< 0.11 ng/ml) < 0.01 Total Protein (6.3 - 8.2 g/dL) 6.8 Albumin (3.5 - 5.0 g/dL) 4.2 Globulin (1.9 - 4.2 gm/dL) 2.6 Albumin/Globulin Ratio (1.1 - 2.2 %) 1.6 Lipase (23 - 300 U/L) 111 Hematology CBC w Diff NO MAN DIFF REQ WBC (4.8 - 10.8 /CUMM) 15.0 H RBC (4.20 - 5.40 /CUMM) 4.36 Hgb (12.0 - 16.0 G/DL) 12.8 Hct (37 - 47 %) 37.4 MCV (81.0 - 99.0 FL) 85.8 MCH (27.0 - 31.0 PG) 29.4 MCHC (33.0 - 37.0 G/DL) 34.3 RDW (11.5 - 14.5 %) 13.9 Plt Count (130 - 400 /CUMM) 255 MPV (7.4 - 10.4 FL) 8.7 Gran % (42.2 - 75.2 %) 79.4 H Lymphocytes % (20.5 - 51.1 %) 12.0 L Monocytes % (1.7 - 9.3 %) 7.9 Eosinophils % (0 - 5 %) 0.4 Basophils % (0.0 - 2.0 %) 0.3 Absolute Granulocytes (1.4 - 6.5 /CUMM) 11.9 H Absolute Lymphocytes (1.2 - 3.4 /CUMM) 1.8 Absolute Monocytes (0.10 - 0.60 /CUMM) 1.2 H Absolute Eosinophils (0.0 - 0.7 /CUMM) 0.1 Absolute Basophils (0.0 - 0.2 /CUMM) 0 Assessment/Plan Assessment/Plan A 57-year-old woman with a past medical history significant for hypertension, hyperlipidemia, hypothyroidism, Paget's disease, who presented to [facility] ER for nausea, vomiting and diarrhea after she had [employer]. She was found to have positive troponin with peak troponin of 0.24. Her Levothyroxine was lowered from 150 mcg daily to 137 mcg daily several weeks ago. The abnormal TFT in ER coud be sick euthyroid changes. Plan: 1. continue Levothyroxine 137 mcg daily for now; 2. repeat TSH and free T4 tomorrow am will follow. Consult Acknowledgment - Thank you for your consult request.
[2018-05-19 18:47] VITALS: BP 152/82
[2018-05-19 22:31] VITALS: BP 162/100
[2018-05-20 00:28] VITALS: BP 160/100
[2018-05-20 02:30] VITALS: BP 142/62
[2018-05-20 06:18] VITALS: BP 160/86
--- NOTE | 2018-05-20 07:15 | ECHOCARDIOGRAM REPORT ---
CHICA MILLER Age: 57 : 1960 Gender: F Exam Date: 05/19/2018 16:40 Exam Location: ER Ht (in): 59 Wt (lb): 138 BSA: 1.64 BP: 132 / 70 Ordering Physician: Jaqueline Nieto MD Referring Physician: Braydon Haque MD, PhD Technologist: Tita Muñoz [facility] Room Number: [id number] Indications: Hypertension Rhythm: Sinus Technical Quality: fair FINDINGS Left Ventricle Normal left ventricular size, wall thickness and systolic function with no obvious regional wall motion abnormalities. Normal left ventricular diastolic filling pattern for age. The ejection fraction is visually estimated at 60%. Right Ventricle The right ventricle is normal in size and function. Right Atrium The right atrium is normal in size. Left Atrium The left atrium is normal in size. The interatrial septum is intact. Mitral Valve The mitral valve is normal in structure and function. There is no mitral regurgitation. Aortic Valve Structurally normal aortic valve without significant sclerosis or stenosis. There is no aortic regurgitation. Tricuspid Valve The tricuspid valve is normal in structure and function. There is mild tricuspid regurgitation. Pulmonary artery systolic pressure is midly elevated to 45mmHg. Pulmonic Valve Structurally normal pulmonic valve. There is mild to moderate pulmonic regurgitation. Pericardium Normal pericardium with trace effusion. No pleural effusion. Great Vessels Normal aortic root dimension. The aortic arch and great vessels are well seen and are normal. CONCLUSIONS 1. Normal EF of 60%. 2. Mild tricuspid regurgitation. 3. Mild to moderate pulmonic regurgitation. 4. Mild pulmonary hypertension. 5. Trace pericardial effusion. Braydon Haque M.D. (Electronically Signed) Final Date: 20 May 2018 07:10 MEASUREMENTS (Male / Female) Normal Values 2D ECHO LV Diastolic Diameter PLAX 4.2 cm 4.2 - 5.9 / 3.9 - 5.3 cm LV Systolic Diameter PLAX 2.7 cm 2.1 - 4.0 cm LV Fractional Shortening PLAX 35.7 % 25 - 46 % LV Ejection Fraction 2D Teich 65.6 % IVS Diastolic Thickness 1.0 cm LVPW Diastolic Thickness 1.1 cm LV Relative Wall Thickness 0.5 LVOT Diameter 2.0 cm Aortic Root Diameter 3.0 cm LA Systolic Diameter LX 3.8 cm 3.0 - 4.0 / 2.7 - 3.8 cm LA Volume 28.0 cm 18 - 58 / 22 - 52 cm Ascending Aorta Diameter 3.0 cm DOPPLER AV Peak Velocity 117.0 cm/s AV Peak Gradient 5.5 mmHg AV Mean Velocity 79.0 cm/s AV Mean Gradient 3.0 mmHg AV Velocity Time Integral 26.2 cm LVOT Peak Velocity 83.5 cm/s LVOT Peak Gradient 2.8 mmHg LVOT Mean Velocity 50.6 cm/s LVOT Mean Gradient 1.0 mmHg LVOT Velocity Time Integral 18.1 cm LVOT Stroke Volume 56.9 cm AV Area Cont Eq vti 2.2 cm AV Area Cont Eq pk 2.2 cm MV Peak Velocity 122.0 cm/s MV Peak Gradient 6.0 mmHg MV Mean Velocity 53.5 cm/s MV Mean Gradient 1.0 mmHg Mitral E Point Velocity 122.0 cm/s Mitral A Point Velocity 61.7 cm/s Mitral E to A Ratio 2.0 MV PHT Velocity 126.0 cm/s MV Deceleration [place] 487.0 cm/s MV Pressure Half Time 77.6 ms MV Area PHT 2.8 cm MV Deceleration Time 151.0 ms TR Peak Velocity 315.0 cm/s TR Peak Gradient 39.7 mmHg Right Atrial Pressure 5.0 mmHg Pulmonary Artery Systolic Pressure 44.7 mmHg Right Ventricular Systolic Pressure 44.7 mmHg PV Peak Velocity 125.0 cm/s PV Peak Gradient 6.3 mmHg PV Mean Velocity 85.7 cm/s PV Mean Gradient 3.0 mmHg PV Velocity Time Integral 33.1 cm LV E' Lateral Velocity 11.0 cm/s Mitral E to LV E' Lateral Ratio 11.1 LV E' Septal Velocity 11.8 cm/s Mitral E to LV E' Septal Ratio 10.3
[2018-05-20 07:51] LABS: ABSOLUTE BASOPHIL COUNT 0 /CUMM (0.0-0.2); ABSOLUTE EOSINOPHIL COUNT 0 /CUMM (0.0-0.7); ABSOLUTE GRANULOCYTE CT 4.5 /CUMM (1.4-6.5); ABSOLUTE LYMPH COUNT 1.8 /CUMM (1.2-3.4); ABSOLUTE MONOCYTE COUNT 0.5 /CUMM (0.10-0.60); BASOPHIL % 0.7 % (0.0-2.0); EOSINOPHIL % 0.7 % (0-5); GRANULOCYTE % 64.6 % (42.2-75.2); HEMATOCRIT 35.2 % (37-47); MEAN CORPUSCULAR HGB 29.5 PG (27.0-31.0); MEAN CORPUSCULAR VOLUME 86.8 FL (81.0-99.0); MEAN PLATELET VOLUME 9.1 FL (7.4-10.4); PLATELET COUNT 187 /CUMM (130-400); RBC DISTRIBUTION WIDTH 13.6 % (11.5-14.5); RED BLOOD CELL CT 4.06 /CUMM (4.20-5.40)
--- NOTE | 2018-05-20 08:07 | PN- Housestaff ---
Gerson CHOI,Jaqueline 05/20/18 0807: Subjective Follow-up For: Gastroenteritis Demand ischemia Tele-Events Since Last Visit: Overnight normal sinus rhythm with no events Subjective: Patient seen and examined. She no longer has any nausea or vomiting and had one episode of diarrhea last night. Overnight she was hypertensive and her losartan 100 mg was restarted. Patient was made n.p.o. overnight by the night team for stress test but there was some confusion as to when the stress test would be and it was not ordered in time for the equipment to be ordered. Patient has no complaints and stable vitals at the time of interview. Review of Systems Constitutional: Reports: no symptoms. EENTM: Reports: no symptoms. Cardiovascular: Reports: no symptoms. Gastrointestinal: Reports: diarrhea. Musculoskeletal: Reports: no symptoms. Skin: Reports: no symptoms. Objective Last 24 Hrs of Vital Signs/I&O Vital Signs Date Time Temp Pulse Resp B/P B/P Pulse O2 O2 Flow FiO2 Mean Ox Delivery Rate 05/20 0852 56 148/90 05/20 0852 56 148/90 05/20 0618 98.3 56 16 160/86 98 Room Air 05/20 0230 57 142/62 05/20 0131 57 162/100 05/20 0028 56 160/100 05/19 2324 55 161/100 05/19 2231 98.2 61 18 162/100 96 Room Air 05/19 1847 98.2 56 18 152/82 99 Room Air 05/19 1817 98.3 61 16 166/86 99 Room Air 05/19 1628 98.2 56 17 158/72 97 Room Air Intake & Output 05/20 1600 05/20 0800 05/20 0000 Intake Total 50 Output Total Balance 50 Intake, Oral 50 Number 1 1 Bowel Movements Patient 148 lb Weight Physical Exam General Appearance: Alert, Oriented X3, Cooperative, No Acute Distress Skin: No Rashes, No Breakdown, No Significant Lesion Skin Temp/Moisture Exam: Warm/Dry Sepsis Skin Exam (color): Normal for Ethnicity Cardiovascular: Regular Rate, Normal S1, Normal S2, No Murmurs Lungs: Clear to Auscultation, Normal Air Movement Abdomen: Normal Bowel Sounds, Soft, No Tenderness Neurological: Normal Speech Extremities: No Clubbing, No Cyanosis, No Edema, Normal Pulses, No Tenderness/ Swelling Current Medications: Current Medications Sig/Neo Start time Last Medication Dose Route Stop Time Status Admin Acetaminophen 1,000 MG Q6P PRN 05/18 0330 AC IV Aspirin 81 MG DAILY 05/18 1643 AC 05/20 PO 0850 Atorvastatin Calcium 80 MG 1700 05/18 1700 AC 05/19 PO 1812 Fluoxetine HCl 20 MG DAILY 05/18 0900 AC 05/20 PO 0852 Heparin Sodium 5,000 UNIT Q8 05/18 0600 AC 05/20 (Porcine) SC 1337 Hydralazine HCl 25 MG ONCE ONE 05/20 0045 DC 05/20 PO 05/20 0046 0131 Levothyroxine Sodium 0.15 MG DAILY AC 05/21 0700 AC PO Levothyroxine Sodium 0.137 MG DAILY AC 05/18 0700 DC 05/20 PO 0601 Lorazepam 0.5 MG BID PRN 05/18 0745 AC 05/18 IV 0801 Lorazepam 0.25 MG TID PRN 05/18 0330 AC PO 05/25 0329 Losartan Potassium 100 MG DAILY 05/20 0900 AC 05/20 PO 0852 Losartan Potassium 50 MG ONCE ONE 05/19 2245 DC 05/19 PO 05/19 2246 2324 Metoclopramide HCl 10 MG Q6P PRN 05/18 0745 AC 05/18 IV 0801 Metoprolol Succinate 100 MG DAILY 05/18 0900 AC 05/19 PO 0920 Ondansetron HCl 4 MG Q6P PRN 05/18 0330 AC 05/18 IV 0708 Potassium Chloride 40 MEQ ONCE ONE 05/20 1200 DC 05/20 PO 05/20 1201 1337 Last 24 Hrs of Lab/Nilay Results Last 24 Hrs of Labs/Mics: Laboratory Tests 05/20/18 0625: Anion Gap 9, Estimated GFR > 60, BUN/Creatinine Ratio 18.3, TSH 16.800 H, Free T4 2.04 H, CBC w Diff NO MAN DIFF REQ, RBC 4.06 L, MCV 86.8, MCH 29.5, MCHC 34.0, RDW 13.6, MPV 9.1, Gran % 64.6, Lymphocytes % 26.3, Monocytes % 7.7, Eosinophils % 0.7, Basophils % 0.7, Absolute Granulocytes 4.5, Absolute Lymphocytes 1.8, Absolute Monocytes 0.5, Absolute Eosinophils 0, Absolute Basophils 0 Microbiology 05/19 1530 GI: Stool Culture - RES 05/19 153 STOOL: Clostridium difficile Toxin A & B - COMP 05/19 1530 STOOL: Cryptosporidium Antigen - CAN Cancelled: MORE SPECIMEN NOT RECEIVED IN LABORATORY 05/19 1530 STOOL: Giardia Antigen (NILAY) - CAN Cancelled: MORE SPECIMEN NOT RECEIVED IN LABORATORY Assessment/Plan Assessment: 57 year old woman with past medical history of hypertension, hyperlipidemia, pagets disease, anxiety, depression, and hypothyroidism seen for nausea, vomiting, diarrhea, and abdominal pain. Patient reports being in her normal state of health until just after dinner. Around 6 PM she got [facility] for dinner and shortly thereafter developed her symptoms. She is markedly nauseated with non-bloody bilious vomiting and frequent brown, non-bloody water stools associated with abdominal pain. Due to persistence / worsening of her symptoms she came to the [facility] ED. Review of Systems Limited due to patient distress, but she denies any fever, chest pain, shortness of breath, or urinary symptoms. Objective Vitals: Temp 97.4, HR 94, RR 22, BP 166/90, O2 94% on RA Physical Exam -General: middled aged woman in moderate distress -HEENT: NCAT, PERRL, EOMI, anicteric sclera, dry oral mucosa -Neck: Supple, no JVD, trachea midline, no accessory respiratory muscle use -Cardio: Normal S1/S2 w/o m/g/r; RRR -Pulm: CTA bilaterally -Abdomen: Soft, moderate RUQ tenderness, non-distended, bowel sounds intact -Neuro: Awake and alert, CN II-XII grossly intact Labs / Imaging / Studies -CBC: WBC 15.0, HGB 12.8, HCT 37.4, PLT 255 -BMP: Na 143, K 2.9, Cl 103, CO2 25, BUN 26, Cr 1.1, AG 16, Glu 177 -LFT: within normal limits -Misc: Ca 9.8, PO 2.2, Mg 1.4, Lipase negative, lactic 5.1, troponin I <0.01 -EKG: NSR with ST depression V4-V6 Assessment 57 year old woman with multiple medical problems significant for hypertension and hyperlipidemia and multiple first degree family members with cardiovascular disease seen for acute onset nausea, vomiting, diarrhea, and abdominal pain after eating fried chicken. At admission patient was complaining of severe nausea and frequent stools but denies any abdominal pain at rest. Vitals are significant for BP 166/90 and are otherwise normal. Physical examination demonstrates a woman in moderate distress appearing restless / colicky with a normal cardiopulmonary examination and RUQ abdominal tenderness. Significant labs include WBC 15.0, K 2.9, Cr 1.1 (0.6 baseline), Mg 1.4, PO 2.2, Lactic 5.1, Troponin I negative. EKG demonstrated new ST depression in V4-V6. In the ED patient received 1 L normal saline, phenergan, zofran, KCl, and magnesium. Problem List -Abdominal pain, nausea, vomiting, diarrhea - gastroenteritis vs colitis -Leukocytosis, likely reactive -Hypokalemia / Hypomagnesenemia - likely due to vomiting, diarrhea, dehydration -Hypophosphatemia with history of Pagets -Acute kidney injury, likely prerenal azotemia (baseline 0.6, now 1.1) -Hypertension -Hyperlipidemia -Anxiety / Depression -Hypothyroidism Plan -Continue to monitor in telemetry floor -ACS ruled out with EKGs/troponin -Patient supposed to have nuclear stress test today but will be deferred. Follow cardio recommendations as to when she will have the test. -Continue blood pressure medication losartan 100 mg -Stat CTA abdomen/pelvis to assess for mesenteric ischemia was negative -Stool culture, ova, parasites and C. diff toxin were all negative -Zofran PRN for nausea -For patient's sick euthyroid syndrome with a high T4 and TSH, we will continue her on her levothyroxine with increased dose to 150 mcg and repeat TSH and T4 in 2-3 weeks follow up outpatient with Dr. gan. -Pain control with acetaminophen -Continue regular diet -DVT PPx with subcutaneous heparin -FULL CODE Problem List: 1. Sick euthyroidism 2. Gastroenteritis 3. Demand ischemia Pain Ratin Pain Location: na Pain Goal: Remain pain free Pain Plan: na Tomorrow's Labs & Rationales: Megan Neves MD 05/20/18 1125: Attending MD Review Statement Attending Statement Attending MD Statement: examined this patient, discuss w/resident/PA/CANOPY INSPECTOR, agreed w/resident/PA/CANOPY INSPECTOR, reviewed EMR data (avail), discussed with nursing, reviewed images Attending Assessment/Plan: Patient feels completely well. She is not having any more diarrhea. Plan is for a nuclear stress test as recommended by Dr. Haque as she had a type II AK demand ischemia in the setting of what we believe is a gastroenteritis with severe electrolyte abnormalities.
--- NOTE | 2018-05-20 11:06 | PN- Endocrinology ---
Assessment/Plan Endoscopy Assessment: A 57-year-old woman with a past medical history significant for hypertension, hyperlipidemia, hypothyroidism, Paget's disease, who presented to [facility] ER for nausea, vomiting and diarrhea after she had [employer]. She was found to have positive troponin with peak troponin of 0.24. Her Levothyroxine was lowered from 150 mcg daily to 137 mcg daily several weeks ago. Repeat TFT on 05/20/2018 showed TSH 16.8 and free T4 204. Plan: 1. increase Levothyroxine to 150 mcg daily for now; 2. repeat TSH and free T4 in 2-3 weeks to look for a trend. 3. replete K; continue monitoring electrolytes. will follow. Plan: as above. Subjective Subjective: She is going to have stress test done today. Objective Last 24 Hrs of Vital Signs/I&O Vital Signs Date Time Temp Pulse Resp B/P B/P Pulse O2 O2 Flow FiO2 Mean Ox Delivery Rate 05/20 0852 56 148/90 05/20 0852 56 148/90 05/20 0618 98.3 56 16 160/86 98 Room Air 05/20 0230 57 142/62 05/20 0131 57 162/100 05/20 0028 56 160/100 05/19 2324 55 161/100 05/19 2231 98.2 61 18 162/100 96 Room Air 05/19 1847 98.2 56 18 152/82 99 Room Air 05/19 1817 98.3 61 16 166/86 99 Room Air 05/19 1628 98.2 56 17 158/72 97 Room Air Intake & Output 05/20 1600 05/20 0800 05/20 0000 Intake Total 50 Output Total Balance 50 Intake, Oral 50 Number 1 1 Bowel Movements Patient 148 lb Weight Results Pertinent Lab/Nilay Results: Laboratory Tests 05/20 0625 Chemistry Sodium (137 - 145 mmol/L) 144 Potassium (3.5 - 5.1 mmol/L) 3.4 L Chloride (98 - 107 mmol/L) 107 Carbon Dioxide (22 - 30 mmol/L) 29 Anion Gap (5 - 16) 9 BUN (7 - 17 mg/dL) 11 Creatinine (0.5 - 1.0 mg/dL) 0.6 Estimated GFR (>60 ml/min) > 60 BUN/Creatinine Ratio (7 - 25 %) 18.3 TSH (0.270 - 4.200 uIU/mL) 16.800 H Free T4 (0.64 - 1.79 ng/dL) 2.04 H Hematology CBC w Diff NO MAN DIFF REQ WBC (4.8 - 10.8 /CUMM) 7.0 RBC (4.20 - 5.40 /CUMM) 4.06 L Hgb (12.0 - 16.0 G/DL) 12.0 Hct (37 - 47 %) 35.2 L MCV (81.0 - 99.0 FL) 86.8 MCH (27.0 - 31.0 PG) 29.5 MCHC (33.0 - 37.0 G/DL) 34.0 RDW (11.5 - 14.5 %) 13.6 Plt Count (130 - 400 /CUMM) 187 MPV (7.4 - 10.4 FL) 9.1 Gran % (42.2 - 75.2 %) 64.6 Lymphocytes % (20.5 - 51.1 %) 26.3 Monocytes % (1.7 - 9.3 %) 7.7 Eosinophils % (0 - 5 %) 0.7 Basophils % (0.0 - 2.0 %) 0.7 Absolute Granulocytes (1.4 - 6.5 /CUMM) 4.5 Absolute Lymphocytes (1.2 - 3.4 /CUMM) 1.8 Absolute Monocytes (0.10 - 0.60 /CUMM) 0.5 Absolute Eosinophils (0.0 - 0.7 /CUMM) 0 Absolute Basophils (0.0 - 0.2 /CUMM) 0
--- NOTE | 2018-05-20 12:04 | Patient Discharge Instructions ---
Discharge Instructions General Discharge Information You were seen/treated for: Myocardial injury secondary to increased demand on the heart due to dehydration from vomiting/diarrhea Special Instructions: 1. please follow up with Dr. Haque talent associate in one week 2. please follow up with PCP in one week 3. please follow up with payloader machine operator in one week for thyroid abnormalities Diet Continue normal diet: Yes Activity Full Activity/No Limits: Yes Acute Coronary Syndrome Inclusion Criteria At DC or during hospital stay patient has or had the following: ACS DIAGNOSIS No Discharge Core Measures Meds if any: Prescribed or Continued at Discharge Meds if any: NOT Prescribed or Continued at Discharge Congestive Heart Failure Inclusion Criteria At DC or during hospital stay patient has or had the following: CHF DIAGNOSIS No Discharge Core Measures Meds if any: Prescribed or Continued at Discharge Meds if any: NOT Prescribed or Continued at Discharge Cerebrovascular accident Inclusion Criteria At DC or during hospital stay patient has or had the following: CVA/TIA Diagnosis No Discharge Core Measures Meds if any: Prescribed or Continued at Discharge Meds if any: NOT Prescribed or Continued at Discharge Venous thromboembolism Inclusion Criteria VTE Diagnosis No VTE Type NONE VTE Confirmed by (Test) NONE Discharge Core Measures - Per Current guidelines, there needs to be overlap - treatment for the first 5 days of Warfarin therapy. - If discharged on Warfarin prior to 5 days of - overlap therapy, the patient will need to be - assessed for post discharge needs including - *Post discharge parental anticoagulation - *Warfarin and/or parental anticoagulation education - *Follow up date to check INR post discharge At least 5 days overlap therapy as Inpatient No Meds if any: Prescribed or Continued at Discharge Note: Overlap Therapy is Warfarin and Anticoagulant Meds if any: NOT Prescribed or Continued at Discharge
[2018-05-20 14:38] VITALS: BP 134/70
[2018-05-20] MEDS ORDERED: ASPIRIN81 M4 PO (16:05)
[2018-05-20] MEDS ORDERED: ATORVASTATIN CA80 M1 PO (16:05)
[2018-05-20] MEDS ORDERED: SYNTHROID150 MCG PO (16:05)
--- NOTE | 2018-05-20 16:33 | PN- Cardiology ---
Subjective Subjective: * No complaints. * sinus rhythm * cardiac enyzmes are trending down Objective Vital Signs and I&Os Vital Signs Date Time Temp Pulse Resp B/P B/P Pulse O2 O2 Flow FiO2 Mean Ox Delivery Rate 05/20 1438 97.9 65 20 134/70 98 05/20 0852 56 148/90 05/20 0852 56 148/90 05/20 0618 98.3 56 16 160/86 98 Room Air 05/20 0230 57 142/62 05/20 0131 57 162/100 05/20 0028 56 160/100 05/19 2324 55 161/100 05/19 2231 98.2 61 18 162/100 96 Room Air 05/19 1847 98.2 56 18 152/82 99 Room Air 05/19 1817 98.3 61 16 166/86 99 Room Air Intake & Output 05/20 1600 05/20 0800 05/20 0000 05/19 1600 05/19 0800 05/19 0000 Intake Total 450 50 880 1000 Output Total Balance 450 50 880 1000 Intake, IV 400 1000 Intake, Oral 450 50 480 Number 1 1 Bowel Movements Patient 148 lb Weight Physical Exam: General: WD/WN female in NAD; alert and oriented x 3 HEENT: NC/AT, PERRL, EOMI Neck: no JVD, no carotid bruit Heart: RRR w/o murmur Lungs: clear bilaterally ABdomen: soft, NT, +ve bowel sounds Extremities: no edema Assessment/Plan Assessment/Plan * This patient had a very mild rise in cardiac enzymes that were likely related to increased myocardial demand in the setting of tachycardia. Her cardiac enzymes are coming down but I do think they are metals sales representative of some degree of myocardial ischemia. We will risk stratify this patient be a treadmill nuclear stress test tomorrow. * Normal EF on echo. * Continue an aspirin and statin. Continue her beta jason. Continue telemetry? Yes
[2018-05-20 21:46] VITALS: BP 156/70
[2018-05-21 06:40] VITALS: BP 152/90
--- NOTE | 2018-05-21 07:32 | PN- Housestaff ---
Gerson CHOI,Jaqueline 05/21/18 0732: Subjective Follow-up For: gastroenteritis demand ischemia Subjective: Patient has no complaints this morning. no chest pain or dyspnea. vitals stable overnight. Review of Systems Constitutional: Reports: no symptoms. Cardiovascular: Reports: no symptoms. Respiratory: Reports: no symptoms. Gastrointestinal: Reports: no symptoms. Objective Last 24 Hrs of Vital Signs/I&O Vital Signs Date Time Temp Pulse Resp B/P B/P Pulse O2 O2 Flow FiO2 Mean Ox Delivery Rate 05/21 0857 152/90 05/21 0640 98.0 70 18 152/90 98 Room Air 05/20 2146 98.3 57 18 156/70 97 Room Air 05/20 1438 97.9 65 20 134/70 98 Intake & Output 05/21 1600 05/21 0805/21 0000 Intake Total 100 Output Total Balance 100 Intake, Oral 100 Patient 147 lb Weight Weight Chair scale Measurement Method Physical Exam General Appearance: Alert, Oriented X3, Cooperative, No Acute Distress HEENT: Atraumatic, PERRLA, Mucous Membr. moist/pink Cardiovascular: Regular Rate, Normal S1, Normal S2, No Murmurs Lungs: Clear to Auscultation, Normal Air Movement Abdomen: Normal Bowel Sounds, Soft, No Tenderness Neurological: Normal Speech Extremities: No Clubbing, No Cyanosis Current Medications: Current Medications Sig/Neo Start time Last Medication Dose Route Stop Time Status Admin Acetaminophen 1,000 MG Q6P PRN 05/18 0330 AC IV Aspirin 81 MG DAILY 05/18 1643 AC 05/21 PO 0857 Atorvastatin Calcium 80 MG 1700 05/18 1700 AC 05/20 PO 2114 Fluoxetine HCl 20 MG DAILY 05/18 0900 AC 05/21 PO 0857 Heparin Sodium 5,000 UNIT Q8 05/18 0600 AC 05/20 (Porcine) SC 2114 Levothyroxine Sodium 0.15 MG DAILY AC 05/21 07 AC 05/21 PO 0543 Levothyroxine Sodium 0.137 MG DAILY AC 05/18 0700 DC 05/20 PO 0601 Lorazepam 0.5 MG BID PRN 05/18 0745 AC 05/18 IV 0801 Lorazepam 0.25 MG TID PRN 05/18 0330 AC 05/20 PO 05/25 0329 2220 Losartan Potassium 100 MG DAILY 05/20 0900 AC 05/21 PO 0857 Metoclopramide HCl 10 MG Q6P PRN 05/18 0745 AC 05/18 IV 0801 Metoprolol Succinate 100 MG DAILY 05/18 0900 AC 05/19 PO 0920 Ondansetron HCl 4 MG Q6P PRN 05/18 0330 AC 05/18 IV 0708 Patient Medication 1 ED ONE ONE 05/20 1630 DC Teaching ED 05/20 1631 Potassium Chloride 40 MEQ ONCE ONE 05/20 1200 DC 05/20 PO 05/20 1201 1337 Assessment/Plan Assessment: 57 year old woman with past medical history of hypertension, hyperlipidemia, pagets disease, anxiety, depression, and hypothyroidism seen for nausea, vomiting, diarrhea, and abdominal pain. Patient reports being in her normal state of health until just after dinner. Around 6 PM she got [facility] for dinner and shortly thereafter developed her symptoms. She is markedly nauseated with non-bloody bilious vomiting and frequent brown, non-bloody water stools associated with abdominal pain. Due to persistence / worsening of her symptoms she came to the [place] ED. Review of Systems Limited due to patient distress, but she denies any fever, chest pain, shortness of breath, or urinary symptoms. Objective Vitals: Temp 97.4, HR 94, RR 22, BP 166/90, O2 94% on RA Physical Exam -General: middled aged woman in moderate distress -HEENT: NCAT, PERRL, EOMI, anicteric sclera, dry oral mucosa -Neck: Supple, no JVD, trachea midline, no accessory respiratory muscle use -Cardio: Normal S1/S2 w/o m/g/r; RRR -Pulm: CTA bilaterally -Abdomen: Soft, moderate RUQ tenderness, non-distended, bowel sounds intact -Neuro: Awake and alert, CN II-XII grossly intact Labs / Imaging / Studies -CBC: WBC 15.0, HGB 12.8, HCT 37.4, PLT 255 -BMP: Na 143, K 2.9, Cl 103, CO2 25, BUN 26, Cr 1.1, AG 16, Glu 177 -LFT: within normal limits -Misc: Ca 9.8, PO 2.2, Mg 1.4, Lipase negative, lactic 5.1, troponin I <0.01 -EKG: NSR with ST depression V4-V6 Assessment 57 year old woman with multiple medical problems significant for hypertension and hyperlipidemia and multiple first degree family members with cardiovascular disease seen for acute onset nausea, vomiting, diarrhea, and abdominal pain after eating fried chicken. At admission patient was complaining of severe nausea and frequent stools but denies any abdominal pain at rest. Vitals are significant for BP 166/90 and are otherwise normal. Physical examination demonstrates a woman in moderate distress appearing restless / colicky with a normal cardiopulmonary examination and RUQ abdominal tenderness. Significant labs include WBC 15.0, K 2.9, Cr 1.1 (0.6 baseline), Mg 1.4, PO 2.2, Lactic 5.1, Troponin I negative. EKG demonstrated new ST depression in V4-V6. In the ED patient received 1 L normal saline, phenergan, zofran, KCl, and magnesium. Problem List -Abdominal pain, nausea, vomiting, diarrhea - gastroenteritis vs colitis -Leukocytosis, likely reactive -Hypokalemia / Hypomagnesenemia - likely due to vomiting, diarrhea, dehydration -Hypophosphatemia with history of Pagets -Acute kidney injury, likely prerenal azotemia (baseline 0.6, now 1.1) -Hypertension -Hyperlipidemia -Anxiety / Depression -Hypothyroidism Plan -Continue to monitor in telemetry floor -Patient no longer having any gastroenterologic symptoms -ACS ruled out with EKGs/troponin -Echo normal EF, mild valve abnormalities (WV AND TR) -Patient to have nuclear stress test today and will be discharged depending on the findings -Continue blood pressure medication losartan 100 mg -CTA abdomen/pelvis to assess for mesenteric ischemia was negative -Stool culture, ova, parasites and C. diff toxin were all negative -Zofran PRN for nausea -For patient's sick euthyroid syndrome with a high T4 and TSH, we will continue her on her levothyroxine with increased dose to 150 mcg and repeat TSH and T4 in 2-3 weeks follow up outpatient with Dr. Alba. -Pain control with acetaminophen -Continue regular diet -DVT PPx with subcutaneous heparin -FULL CODE Problem List: 1. Sick euthyroidism 2. Gastroenteritis 3. Demand ischemia Pain Ratin Pain Location: na Pain Goal: Remain pain free Pain Plan: na Tomorrow's Labs & Rationales: Megan Neves MD 05/21/18 1104: Attending MD Review Statement Attending Statement Attending MD Statement: examined this patient, discuss w/resident/PA/ICHTHYOLOGIST, agreed w/resident/PA/ICHTHYOLOGIST, reviewed EMR data (avail), discussed with nursing, discussed with case mgmt, reviewed images Attending Assessment/Plan: 57-year-old female past medical history of hypertension and hyperlipidemia who is here with acute nausea vomiting diarrhea with hypokalemia and hypomagnesemia and a type II DC/demand ischemia based on her troponins. She is going to have a nuclear stress test today and further risk stratification based on the results of that.
--- NOTE | 2018-05-21 11:15 | PN- Endocrinology ---
Assessment/Plan Endoscopy Assessment: A 57-year-old woman with a past medical history significant for hypertension, hyperlipidemia, hypothyroidism, Paget's disease, who presented to [facility] ER for nausea, vomiting and diarrhea after she had [employer]. She was found to have positive troponin with peak troponin of 0.24. Her Levothyroxine was lowered from 150 mcg daily to 137 mcg daily several weeks ago. Repeat TFT on 05/20/2018 showed TSH 16.8 and free T4 204. Levothyroxine was increased to 150 mcg daily. She is going to have stress test done today. Plan: 1. continue Levothyroxine 150 mcg daily for now; 2. repeat TSH and free T4 in 2-3 weeks to look for a trend. 3. f/u with Dr. Alba after discharge. Plan: as above. Subjective Subjective: She has been feeling well. Objective Last 24 Hrs of Vital Signs/I&O Vital Signs Date Time Temp Pulse Resp B/P B/P Pulse O2 O2 Flow FiO2 Mean Ox Delivery Rate 05/21 0857 152/90 05/21 0640 98.0 70 18 152/90 98 Room Air 05/20 2146 98.3 57 18 156/70 97 Room Air 05/20 1438 97.9 65 20 134/70 98 Intake & Output 05/21 1600 05/21 0800 05/21 0000 Intake Total 100 Output Total Balance 100 Intake, Oral 100 Patient 147 lb Weight Weight Chair scale Measurement Method
--- NOTE | 2018-05-21 11:24 | PN- Cardiology ---
Subjective Subjective: * No chest discomfort or shortness of breath. * sinus rhythm * potassium is 3.4 Objective Vital Signs and I&Os Vital Signs Date Time Temp Pulse Resp B/P B/P Pulse O2 O2 Flow FiO2 Mean Ox Delivery Rate 05/21 0857 152/90 05/21 0640 98.0 70 18 152/90 98 Room Air 05/20 2146 98.3 57 18 156/70 97 Room Air 05/20 1438 97.9 65 20 134/70 98 Intake & Output 05/21 0805/21 0000 05/20 1600 05/20 0800 05/20 0000 Intake Total 100 450 50 Output Total Balance 100 450 50 Intake, Oral 100 450 50 Number 1 1 Bowel Movements Patient 147 lb 148 lb Weight Weight Chair scale Measurement Method Physical Exam: General: WD/WN female in NAD; alert and oriented x 3 HEENT: NC/AT, PERRL, EOMI Neck: no JVD, no carotid bruit Heart: RRR w/o murmur Lungs: clear bilaterally ABdomen: soft, NT, +ve bowel sounds Extremities: no edema Assessment/Plan Assessment/Plan * This patient had a very mild rise in cardiac enzymes that were likely related to increased myocardial demand in the setting of tachycardia. Her cardiac enzymes are coming down but I do think they are veterans service representative of some degree of myocardial ischemia. We are risk stratifying this patient with a treadmill nuclear stress test today. We will discharge to home if her stress test is normal with follow up in the office in one week. * Normal EF on echo. * Continue an aspirin and statin. Continue her beta jason. Continue telemetry? Yes
[2018-05-21 14:00] VITALS: BP 130/72
[2018-05-21] MEDS ORDERED: ATORVASTATIN CA80 M1 PO ×2 (16:21→18:38)
[2018-05-21] MEDS ORDERED: ASPIRIN81 M4 PO ×2 (16:21→18:38)
[2018-05-21] MEDS ORDERED: SYNTHROID150 MCG PO ×2 (16:21→18:38)
[2018-05-21 17:23] VITALS: BP 134/72
--- NOTE | 2018-05-21 17:49 | NUCLEAR MEDICINE REPORT ---
EXAMINATION: NM MYOCARDIAL PERFUSION CLINICAL INFORMATION: Ischemia. COMPARISON: None. TECHNIQUE: 19.1 mCi technetium Myoview for stress imaging. 28 mCi technetium Myoview for rest imaging. FINDINGS: SPECT imaging in the axial, sagittal and coronal planes. Stress imaging demonstrating a small, [id number] intensity defect in the apex. This appears predominately fixed. No other defect. Review of contractility is felt to be within normal limits. Normal wall motion is felt to be present. Cannot exclude some mild hypokinesis in the inferoseptum but this may be artifactual. IMPRESSION: Small size, [id number] intensity predominately fixed apical defect. No significant area of stress-induced myocardium. Calculated ejection fraction normal 65% and visually within normal limits. Contractility is overall within normal limits. Cannot exclude some mild hypokinesis in the inferoseptum but this may be artifactual.
--- NOTE | 2018-05-22 11:51 | Discharge Summary ---
Visit Information Visit Dates Admission Date: 05/18/18 Discharge Date: 05/21/18 Hospital Course Course Attending Physician: Pam CHOI,Megan Blanchard Primary Care Physician: Anjali CHOI,[facility] Hospital Course: 57 year old woman with past medical history of hypertension, hyperlipidemia, pagets disease, anxiety, depression, and hypothyroidism seen for nausea, vomiting, diarrhea, and abdominal pain. Patient reports being in her normal state of health until just after dinner. Around 6 PM she got [facility] for dinner and shortly thereafter developed her symptoms. She was markedly nauseated with non-bloody bilious vomiting and frequent brown, non-bloody water stools associated with abdominal pain. Her who ate the same dinner had no symptoms. No sick contacts or travel. Due to persistence / worsening of her symptoms she came to the [facility]. Review of Systems Limited due to patient distress, but she denies any fever, chest pain, shortness of breath, or urinary symptoms. Objective Vitals: Temp 97.4, HR 94, RR 22, BP 166/90, O2 94% on RA Physical Exam -General: middled aged woman in moderate distress -HEENT: NCAT, PERRL, EOMI, anicteric sclera, dry oral mucosa -Neck: Supple, no JVD, trachea midline, no accessory respiratory muscle use -Cardio: Normal S1/S2 w/o m/g/r; RRR -Pulm: CTA bilaterally -Abdomen: Soft, moderate RUQ tenderness, non-distended, bowel sounds intact -Neuro: Awake and alert, CN II-XII grossly intact At admission patient was complaining of severe nausea and frequent stools but denies any abdominal pain at rest. Vitals are significant for BP 166/90 and are otherwise normal. Physical examination demonstrates a woman in moderate distress appearing restless / colicky with a normal cardiopulmonary examination and RUQ abdominal tenderness. Significant labs include WBC 15.0, K 2.9, Cr 1.1 (0.6 baseline), Mg 1.4, PO 2.2, Lactic 5.1, Troponin I negative. EKG demonstrated new ST depression in V4-V6. In the ED patient received 1 L normal saline, phenergan, zofran, KCl, and magnesium. Problem List -Abdominal pain, nausea, vomiting, diarrhea likely due to gastroenteritis -Leukocytosis, likely reactive -Hypokalemia / Hypomagnesenemia - likely due to vomiting, diarrhea, dehydration -Hypophosphatemia with history of Pagets -Acute kidney injury, likely prerenal azotemia (baseline 0.6, now 1.1) -Hypertension -Hyperlipidemia -Anxiety / Depression -Hypothyroidism Hospital Course Patient admitted to telemetry floors. ACS ruled out with EKGs/troponin. Patient was started on aspirin and statin and her beta jason was continued as per cardiology. CTA abdomen/pelvis to assess for mesenteric ischemia was negative. Pain control with acetaminophen. Stool culture, ova, parasites, C. diff toxin negative. Lactic acid second draw was negative. Started patient NPO and advanced slowly. Repleted electrolytes. Normal Saline @ 125 mL/hr on first admission with taper. Zofran PRN for nausea. Started other patient home medications but we held indapamide, losartan for dehydration / ALEC. For cardiac workup we did an echo which showed normal EF, mild valve abnormalities (ME AND TR). Patient was found to have thyroid abnormality with high T4 and TSH, thought to be sick euthyroid syndrome by apron cleaner. We continued her on her levothyroxine with increased dose to 150 mcg and instructions to repeat TSH and T4 in 2-3 weeks follow up outpatient with Dr. Alba. Slime\ent's gastroenterologic symptoms decreased during her stay until the point she was no longer having symptoms. Blood pressure increased off of losartan and as her ALEC resolved, we restarted it. We risk stratifed this patient with a treadmill nuclear stress test and found a small size, mild to moderate intensity predominately fixed apical defect which may be mild hypokinesis but may also be artifactual. No significant area of stress-induced myocardium. EF 65% with contractility within normal limits. Patient referred to follow up with cardiology and apron cleaner. DVT PPx with subcutaneous heparin FULL CODE Allergies: Coded Allergies: NO KNOWN ALLERGIES (02/01/15) Disposition Summary Disposition Principal Diagnosis: Myocardial injury secondary to increased demand on the heart due to dehydration from vomiting/diarrhea Additional Diagnosis: sick euthyroid syndrome Discharge Disposition: home or self care Discharge Instructions General Discharge Information Code Status: Full Code Patient's Diet: regular Patient's Activity: regular Follow-Up Instructions/Appts: 1. please follow up with Dr. Haque feedmobile driver in one week 2. please follow up with PCP in one week 3. please follow up with apron cleaner in one week for thyroid abnormalities Medications at Discharge Discharge Medications: Stop taking the following medications: Levothyroxine Sodium (Synthroid) 137 MCG TABLET ORAL DAILY Continue taking these medications: Lorazepam (Ativan) 0.5 MG TABLET 0.5 Tablet ORAL THREE TIMES DAILY as needed for ANXIETY Metoprolol Succinate (Metoprolol Succinate) 100 MG TAB.ER.24H 1 Tablet ORAL DAILY Qty = 30 Comments: Last Taken:05/21/18 Time:5PM Losartan Potassium (Losartan Potassium) 100 MG TABLET 1 Tablet ORAL DAILY Qty = 30 Comments: Last Taken:05/21/18 Time:0900 Indapamide (Indapamide) 1.25 MG TABLET 1 Tablet ORAL DAILY Fluoxetine HCl (Fluoxetine HCl) 20 MG CAPSULE 1 Capsule ORAL DAILY Comments: Last Taken:05/21/18 Time:0900 Start taking the following new medications: Atorvastatin Calcium (Atorvastatin Calcium) 80 MG TABLET 80 Milligram ORAL 5 PM Qty = 90 No Refills Comments: Last Taken:05/21/18 Time:5PM Aspirin (Aspirin*) 81 MG TAB.CHEW 81 Milligram ORAL DAILY Qty = 90 No Refills Comments: Last Taken:05/21/18 Time:0900 Levothyroxine Sodium (Synthroid) 150 MCG TABLET 0.15 Milligram ORAL DAILY BEFORE BREAKFAST Qty = 90 No Refills Comments: Last Taken:05/21/18 Time:0600 Copies To: Anjali CHOI,Annie Haque MD PHD,Braydon Tyson
== END 2018-05-21 19:12 | DRG 392 ==
LOC: ERH 00:24 → ERHI 01:53 → 1NO 01:53 → ENRESERV 02:36 → CANRESERV 02:37 → ENRESERV 02:37 → CANRESERV 02:38 → EDBEDREQ 02:43 → ERHI 05-19 10:13 → ENRESERV 05-19 16:58 → ENTRNSPT 05-19 18:19 → EDTRNSPTSTS 05-19 18:38 → EDTRNSPT 05-19 18:38 → 1NO 05-19 18:47 → CMPTRNSPT 05-19 18:59 → 1NO 05-21 19:12
PROVIDERS: Emergency Medicine; Internal Medicine Interventional Cardiology; Student in an Organized Health Care Education/Training Program
PROC: 4A12XM4 Monitoring of Cardiac Stress, External Approach (ICD-10-PCS; principal; 2018-05-21)
PROC: 3E033HZ Introduction of Radioactive Substance into Peripheral Vein, Percutaneous Approach (ICD-10-PCS; principal; 2018-05-21)
DX: K52.9 Noninfective gastroenteritis and colitis, unspecified (principal); N17.9 Acute kidney failure, unspecified; E87.2 Acidosis; I24.8 Other forms of acute ischemic heart disease; E86.0 Dehydration; E03.9 Hypothyroidism, unspecified; I10 Essential (primary) hypertension; E78.5 Hyperlipidemia, unspecified; E87.6 Hypokalemia; E83.42 Hypomagnesemia; E83.39 Other disorders of phosphorus metabolism; M88.852 Osteitis deformans of left thigh; F41.9 Anxiety disorder, unspecified; F32.9 Major depressive disorder, single episode, unspecified; R11.2 Nausea with vomiting, unspecified; Z87.891 Personal history of nicotine dependence; R00.0 Tachycardia, unspecified; E07.81 Sick-euthyroid syndrome
CPT/HCPCS: 1NP; ERO; 36415; 74174; 78452; 82436; 87015; 87045; 87328; 87329; 87899; 87899-59; 93005; 93010; 93016; 93017; 93306; 96365; 96366; 96375; 99291; A9502; J1644; J2405; J2550; J2765; J3490; J7508